=== PATIENT | female | born 1945 | race Caucasian/White ===

== ENCOUNTER 2017-08-26 12:38 | Emergency (ER) | payer MEDICARE, OTHER ==
[~2017-08-26] VITALS: Ht 157.5 cm; Wt 119.9 kg
[~2017-08-26 12:38] MED LIST: ACYC-114 PO; ALBU18HF INH; ALEN70TA5 PO; ASPI325T17 PO; ATOR40TA78 PO; BIOT25005 PO; CETI10TA32 PO; CHOL100011 PO; CYCL5TAB PO; FLUN25SP INH; FLUT1DIS IH; HYDR25TA6 PO; IPRA3AMP INH; LEVO100T5 PO; LISI-170 PO; METF-366 PO; METH500T7 PO; METO25TA91 PO; POTA2.5T PO
[2017-08-26] MEDS ORDERED: SODIUM CHLORIDE FLUSH 10ML SYR IVF ONE (13:30)
[2017-08-26] MEDS ORDERED: ASPIRIN 81 MG TABLET CHEW PO ONE (13:30)
[2017-08-26] MEDS ORDERED: ASPIRIN 81 MG TABLET CHEW ONE (13:59)
[2017-08-26 14:16] VITALS: BP 148/79
[2017-08-26 14:29] LABS: HEMATOCRIT 41.6 % (34.6-47.8); HEMOGLOBIN 13.7 g/dL (11.7-16.4); WHITE BLOOD COUNT 9.4 x10^3/uL (3.4-10)
[2017-08-26] MEDS ORDERED: LEVA15HF4 INH (14:33)
[2017-08-26] MEDS ORDERED: ALEN70TA3 PO (14:33)
[2017-08-26] MEDS ORDERED: OXYC-293 PO (14:33)
[2017-08-26] MEDS ORDERED: DIAZ5TAB4 PO (14:33)
[2017-08-26] MEDS ORDERED: CETI10CA PO (14:33)
[2017-08-26] MEDS ORDERED: METO-93 PO (14:33)
[2017-08-26] MEDS ORDERED: SODI3VIA INH (14:33)
[2017-08-26] MEDS ORDERED: NITR0.4T SL (14:33)
[2017-08-26] MEDS ORDERED: POTA99TA2 PO (14:33)
[2017-08-26] MEDS ORDERED: FLUO15CR TP (14:33)
[2017-08-26] MEDS ORDERED: METF-366 PO (14:33)
[2017-08-26 14:41] LABS: ASPARTATE AMINO TRANSFERASE 34 U/L (15-37); BLOOD UREA NITROGEN 16 mg/dL (7-18)
[2017-08-26 14:48] LABS: IS PT STATUS REG ER OR PRE ER? YES
[2017-08-26] MEDS: ALBUTEROL/IPRATROPIUM 2.5MG/0.5MG, 3 ML NPPB ONE ×2 (15:24→15:30)
[2017-08-26] MEDS ORDERED: ALBUTEROL/IPRATROPIUM 2.5MG/0.5MG, 3 ML ONE (15:44)
== END 2017-08-26 16:50 | disposition home or self-care (01) ==
LOC: ED 14:39
DX: J20.8 Acute bronchitis due to other specified organisms (principal); B96.89 Other specified bacterial agents as the cause of diseases classified elsewhere; I10 Essential (primary) hypertension; E11.9 Type 2 diabetes mellitus without complications; J44.1 Chronic obstructive pulmonary disease with (acute) exacerbation; E03.9 Hypothyroidism, unspecified; Z90.49 Acquired absence of other specified parts of digestive tract; Z88.1 Allergy status to other antibiotic agents; Z88.8 Allergy status to other drugs, medicaments and biological substances
CPT/HCPCS: 36415; 71010; 80053; 83880; 84443; 84484; 85025; 93005; 94640; 99285; J7512; J7620